=== PATIENT | male | born 1985 | race African-American/Black ===

== ENCOUNTER 2017-05-12 10:56 | Emergency (ER) | payer OTHER ==
[~2017-05-12] VITALS: Ht 167.6 cm; Wt 83.6 kg
[2017-05-12 11:51] LABS: HEMATOCRIT 48.8 % (38.0-50.0); HEMOGLOBIN 16.4 G/DL (12.5-16.6); MCH 29.8 PG (29.0-34.0); MCHC 33.6 G/DL (30.0-36.0); MCV 88.7 FL (86-99); PLATELET COUNT 320 K/uL (156-360); RBC DIS.WIDTH-CV 14.8 % (11.8-14.6); RBC DIS.WIDTH-SD 48.4 % (39-53); WHITE BLOOD COUNT 8.3 K/uL (4.1-10.2)
[2017-05-12 12:01] LABS: ALBUMIN 4.1 g/dL (3.2-4.8); CHLORIDE 107 mEq/L (99-109); POTASSIUM 3.8 mEq/L (3.7-5.4); SODIUM 139 mEq/L (136-147)
[2017-05-12 12:04] LABS: GLUCOSE 121 mg/dL (70-99); TOTAL PROTEIN 7.2 g/dL (6.4-8.3)
[2017-05-12 12:05] LABS: TOTAL BILIRUBIN 0.8 mg/dL (0.0-1.0)
[2017-05-12 12:07] LABS: ALKALINE PHOSPHATASE 109 IU/L (3-129); GFR ESTIMATE (CALCULATED) > 59 mL/min/ (58.99-99999)
[2017-05-12 12:08] LABS: UREA NITROGEN (BUN) 8 mg/dL (9-23)
[2017-05-12 12:09] LABS: AST (GOT) 20 IU/L (2-34)
[2017-05-12 12:10] LABS: ALT (GPT) 21 IU/L (3-49)
[2017-05-12 15:00] VITALS: BP 116/62
== END 2017-05-12 15:01 | disposition home or self-care (01) ==
LOC: EME 10:56
DX: K62.5 Hemorrhage of anus and rectum (principal); F17.200 Nicotine dependence, unspecified, uncomplicated
CPT/HCPCS: 80053; 81003; 85027; 99281; 99283